=== PATIENT | female | born 1990 | race Caucasian/White ===

== ENCOUNTER 2018-12-02 17:22 | Emergency (ER) | payer BC ==
[2018-12-02] MEDS ORDERED: Sodium Chloride 0.9% 1,000 ML IV ONE (17:38)
--- NOTE | 2018-12-02 17:38 | EDM.PDOC ---
ED HPI GENERAL MEDICAL PROBLEM - General Chief Complaint: Abdominal Pain Stated Complaint: STOMACH ULCER Time Seen by Provider: 12/02/18 17:22 Source of Information: Reports: Patient History Limitations: Reports: No Limitations - History of Present Illness INITIAL COMMENTS - FREE TEXT/NARRATIVE: HISTORY AND PHYSICAL: History of present illness: Patient is a 28-year-old female who presents to the emergency room today with complaints of passing a dark maroon stool and dizziness. She reports that earlier this afternoon she had a "bloody stool" which she reports was dark in color. She has had some intermittent dizziness and "hot flashes". She is concerned that she may have a stomach ulcer, due to some low abdominal discomfort and would like to be evaluated for this. Patient reports that she has multiple "stomach problems" and has had lab work and imaging in the past for this. Patient denies any fever, chills, headache, change in vision, syncope or near syncope. Denies any chest pain, back pain, shortness of breath or cough. Denies any nausea, vomiting, diarrhea, constipation or dysuria. Patient has been eating and drinking appropriately. Review of systems: As per history of present illness and below otherwise all systems reviewed and negative. Past medical history: As per history of present illness and as reviewed below otherwise noncontributory. Surgical history: As per history of present illness and as reviewed below otherwise noncontributory. Social history: See social history for further information Family history: As per history of present illness and as reviewed below otherwise noncontributory. Physical exam: General: Well-developed and well-nourished 28-year-old female. Alert and oriented. Nontoxic appearing and in no acute distress. HEENT: Atraumatic, normocephalic, pupils equal and reactive bilaterally, negative for conjunctival pallor or scleral icterus, mucous membranes moist, TMs normal bilaterally, throat clear, neck supple, nontender, trachea midline. No drooling or trismus noted. No meningeal signs. No hot potato voice noted. Lungs: Clear to auscultation, breath sounds equal bilaterally, chest nontender. Heart: S1S2, regular rate and rhythm without overt murmur Abdomen: Soft, nondistended, obese, nontender. Negative for masses or hepatosplenomegaly. Negative for costovertebral tenderness. Pelvis: Stable nontender. Genitourinary: Deferred. Rectal: This was done with consent and a certified pathology assistant at the bedside. No external or internal hemorrhoids noted. Negative guaiac stool. Good rectal tone. Skin: Psoriasis noted around posterior scalp. Intact, warm, dry. No lesions or rashes noted. Extremities: Atraumatic, moves all extremities per self without difficulty or deficits, negative for cords or calf pain. Neurovascular unremarkable. Neuro: Awake, alert, oriented. Cranial nerves II through XII unremarkable. Cerebellum unremarkable. Motor and sensory unremarkable throughout. Exam nonfocal. Notes: Lab work and CT findings are within normal limits. We did discuss the need for follow-up with her primary care or if continues to have concern of "bloody stools" she should follow up with general surgeon or wellness specialist. Vital signs remain stable. All findings were shared with the patient. Signs and symptoms that would prompt her to return to the emergency room or reviewed and discussed. Supportive care measures were reviewed and discussed. Voices understanding and is agreeable to plan of care. Denies any further questions or concerns at this time. Diagnostics: CBC, CMP, CT abd/pelv Therapeutics: IV fluids Prescription: None Impression: Dizziness Abdominal pain Plan: 1. Please use Tylenol and/or Ibuprofen as needed for pain and fever management. 2. Get plenty of Rest. Encourage fluids to prevent dehydration. 3. Please follow up with your primary care provider and/or the general surgeon as we discussed. Return to the ED as needed as discussed. Definitive disposition and diagnosis as appropriate pending reevaluation and review of above. Abdominal Pain Score (Numeric/FACES): 3 - Related Data Allergies Allergy/AdvReac Type Severity Reaction Status Date / Time ibuprofen Allergy Hives Verified 12/02/18 17:37 Home Meds: Home Meds . [No Known Home Meds] 12/02/18 [History] ED ROS GENERAL - Review of Systems Review Of Systems: ROS reveals no pertinent complaints other than HPI. ED EXAM, GI/ABD - Physical Exam Exam: See Below (See dictation) Course - Vital Signs Last Recorded V/S: Last Vital Signs Temp 97.1 F 12/02/18 17:32 Pulse 85 12/02/18 17:32 Resp 20 12/02/18 17:32 BP 131/89 12/02/18 17:32 Pulse Ox 99 12/02/18 17:32 - Orders/Labs/Meds Orders: Active Orders 24 hr Category Date Time Status Fecal Occult Blood Collection [RC] ASDIRECTED Care 12/02/18 17:38 Active Labs: Laboratory Tests 12/02/18 12/02/18 Range/Units 18:00 18:00 WBC 11.97 H (4.0-11.0) K/uL RBC 4.29 L (4.30-5.90) M/uL Hgb 13.0 (12.0-16.0) g/dL Hct 39.1 (36.0-46.0) % MCV 91.1 (80.0-98.0) fL MCH 30.3 (27.0-32.0) pg MCHC 33.2 (31.0-37.0) g/dL RDW Std Deviation 44.2 (28.0-62.0) fl RDW Coeff of Sheryl 13 (11.0-15.0) % Plt Count 395 (150-400) K/uL MPV 9.40 (7.40-12.00) fL Neut % (Auto) 74.4 (48.0-80.0) % Lymph % (Auto) 18.1 (16.0-40.0) % [place] % (Auto) 5.7 (0.0-15.0) % Eos % (Auto) 1.6 (0.0-7.0) % Baso % (Auto) 0.2 (0.0-1.5) % Neut # (Auto) 8.9 H (1.4-5.7) K/uL Lymph # (Auto) 2.2 (0.6-2.4) K/uL [place] # (Auto) 0.7 (0.0-0.8) K/uL Eos # (Auto) 0.2 (0.0-0.7) K/uL Baso # (Auto) 0.0 (0.0-0.1) K/uL Nucleated RBC % 0.0 /100WBC Nucleated RBCs # 0 K/uL Sodium 141 (136-145) mmol/L Potassium 3.7 (3.5-5.1) mmol/L Chloride 108 H (98-107) mmol/L Carbon Dioxide 24.2 (21.0-32.0) mmol/L BUN 19 H (7.0-18.0) mg/dL Creatinine 0.7 (0.6-1.0) mg/dL Est Cr Clr Drug Dosing TNP Estimated GFR (MDRD) > 60.0 ml/min Glucose 103 (74-106) mg/dL Calcium 8.4 L (8.5-10.1) mg/dL Total Bilirubin 0.1 L (0.2-1.0) mg/dL AST 20 (15-37) IU/L ALT 34 (14-63) IU/L Alkaline Phosphatase 48 (46-116) U/L Total Protein 7.1 (6.4-8.2) g/dL Albumin 3.6 (3.4-5.0) g/dL Globulin 3.5 (2.6-4.0) g/dL Albumin/Globulin Ratio 1.0 (0.9-1.6) Meds: Medications Discontinued Medications Generic Name Dose Route Start Last Admin Trade Name Freq PRN Reason Stop Dose Admin Sodium Chloride 1,000 mls @ 999 mls/hr 12/02/18 17:38 12/02/18 18:00 Normal Saline IV 12/02/18 18:38 999 mls/hr STAT ONE Administration Iopamidol 100 ml 12/02/18 19:09 12/02/18 19:13 [id number] (76%) IVPUSH 12/02/18 19:10 100 ml ONETIME ONE Administration Departure - Departure Time of Disposition: 19:54 Disposition: Home, Self-Care 01 Clinical Impression: Dizziness Abdominal pain Qualifiers: Abdominal location: lower abdomen, unspecified Qualified Code(s): R10.30 - Lower abdominal pain, unspecified - Discharge Information Instructions: Abdominal Pain, Adult, [id number] Referrals: Kareem Ahn MD [Primary Care Provider] - Forms: ED Department Discharge Additional Instructions: The following information is given to patients seen in the emergency department who are being discharged to home. This information is to outline your options for follow-up care. We provide all patients seen in our emergency department with a follow-up referral. The need for follow-up, as well as the timing and circumstances, are variable depending upon the specifics of your emergency department visit. If you don't have a primary care physician on staff, we will provide you with a referral. We always advise you to contact your personal physician following an emergency department visit to inform them of the circumstance of the visit and for follow-up with them and/or the need for any referrals to a consulting specialist. The emergency department will also refer you to a specialist when appropriate. This referral assures that you have the opportunity for follow-up care with a specialist. All of these measure are taken in an effort to provide you with optimal care, which includes your follow-up. Under all circumstances we always encourage you to contact your private physician who remains a resource for coordinating your care. When calling for follow-up care, please make the office aware that this follow-up is from your recent emergency room visit. If for any reason you are refused follow-up, please contact the [facility] Emergency Department at and asked to speak to the emergency department charge nurse. [facility] [address] [place] [address] [place] [address] 1. Please use Tylenol and/or Ibuprofen as needed for pain and fever management. 2. Get plenty of Rest. Encourage fluids to prevent dehydration. 3. Please follow up with your primary care provider and/or the general surgeon as we discussed. Return to the ED as needed as discussed. - My Orders Last 24 Hours: My Active Orders 12/02/18 17:38 Fecal Occult Blood Collection [RC] ASDIRECTED - Assessment/Plan Last 24 Hours: My Active Orders 12/02/18 17:38 Fecal Occult Blood Collection [RC] ASDIRECTED
[2018-12-02 18:34] LABS: CHLORIDE,CL 108 mmol/L (98-107); SODIUM,NA 141 mmol/L (136-145)
[2018-12-02] MEDS ORDERED: Iopamidol 755 Mg/ML 100 ML Bottle IVPUSH ONE (19:09)
--- NOTE | 2018-12-02 19:49 | CT ---
INDICATION: ABDOMINAL PAIN WITH BLACK TARRY STOOL. TECHNIQUE: A CT volumetric acquisition was performed of the abdomen and pelvis during intravenous infusion of 100ML [id number] nonionic intravenous contrast. Please note that all CT scans at this facility use dose modulation, iterative reconstruction, and/or weight-based dosing when appropriate to reduce radiation dose to as low as reasonably achievable. COMPARISON: none FINDINGS: The CT images demonstrate mild parenchymal densities within both lung bases, left greater than right. There is no evidence of pleural or pericardial fluid. Within the abdomen the liver and spleen are of normal size and have uniform enhancement. There is no evidence of mass or inflammation within the pancreas. The gallbladder and bile ducts appear normal. The adrenal glands have normal morphology. The kidneys appear normal. The small and large bowel loops appear normal and there are no abnormalities noted within the small bowel mesentery or greater omentum. The aorta and IVC appear normal. There is no evidence of retroperitoneal lymphadenopathy. The uterus and ovaries appear normal. There is no evidence of a ventral abdominal wall hernia. IMPRESSION: No acute intra-abdominal or intrapelvic pathology. Mild bibasilar atelectasis or infiltrates, left greater than right. Please note that all CT scans at this facility use dose modulation, iterative reconstruction, and/or weight-based dosing when appropriate to reduce radiation dose to as low as reasonably achievable. Dictated by Tj Pinto MD @ Dec 02 2018 7:40PM Signed by Dr. Tj Pinto @ Dec 02 2018 7:48PM
== END 2018-12-02 20:06 | disposition home or self-care (01) ==
LOC: MW.ED 17:22
DX: R10.30 Lower abdominal pain, unspecified (principal); R42 Dizziness and giddiness; L40.9 Psoriasis, unspecified
CPT/HCPCS: 74177; 80053; 85025; 96360; 99284; J7040; Q9967

== ENCOUNTER 2019-11-22 16:46 | Emergency (ER) | payer BC ==
[2019-11-22] MEDS ORDERED: Sodium Chloride 0.9% 10 ML Syringe FLUSH PRN (16:53)
[2019-11-22] MEDS ORDERED: Sodium Chloride 0.9% 2.5 ML Syringe FLUSH PRN (16:53)
--- NOTE | 2019-11-22 17:00 | EDM.PDOC ---
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 She has been bleeding for 3 days. It is less than that period. She is not having any orthostatic symptoms or diaphoresis or lightheadedness. She does not know her blood type. She has pain in the low suprapubic area mostly deep lower right and deep lower left quadrants. She has central lower suprapubic cramps that are almost constant moderately severe. The sharp pains are intermittent in the sides. She does not have a fever but she does feel cold. She enjoys good health. [] Review of systems: As per history of present illness and below otherwise all systems reviewed and negative. Past medical history: As per history of present illness and as reviewed below otherwise noncontributory. Surgical history: As per history of present illness and as reviewed below otherwise noncontributory. Social history: No reported history of drug or alcohol abuse. Family history: As per history of present illness and as reviewed below otherwise noncontributory. Physical exam: HEENT: Atraumatic, normocephalic, pupils reactive, negative for conjunctival pallor or scleral icterus, mucous membranes moist, throat clear, neck supple, nontender, trachea midline. Lungs: Clear to auscultation, breath sounds equal bilaterally, chest nontender. Heart: S1S2, regular, negative for clicks, rubs, or JVD. Abdomen: Soft, nondistended, slightly tender in the suprapubic area. Negative for masses or hepatosplenomegaly. Negative for costovertebral tenderness. Pelvis: Stable nontender. Genitourinary: Deferred. Rectal: Deferred. Extremities: Atraumatic, negative for cords or calf pain. Neurovascular unremarkable. Neuro: Awake, alert, oriented. Cranial nerves II through XII unremarkable. Cerebellum unremarkable. Motor and sensory unremarkable throughout. Exam nonfocal. Diagnostics: [] Therapeutics: [] Impression: [] Plan: [] Definitive disposition and diagnosis as appropriate pending reevaluation and review of above. Patient's hCG was low enough that I do not know whether she is too early to see on the ultrasound or if she has had a miscarriage. Plan to do the hCG in 2 or more days and follow-up with her family doctor at [facility]. Stephanie patient refused to wait for her blood type and to get her RhoGam. She insists that she will never change her mind and does not want to have any future babies. Onset: Today cramping Pain Score (Numeric/FACES): 5 - Related Data Allergies Allergy/AdvReac Type Severity Reaction Status Date / Time ibuprofen Allergy Hives Verified 12/02/18 17:37 Home Meds: Home Meds . [No Known Home Meds] 12/02/18 [History] Past Medical History Musculoskeletal History: Reports: Arthritis Dermatologic History: Reports: Psoriasis - Infectious Disease History Infectious Disease History: Reports: Chicken Pox Social & Family History - Caffeine Use Caffeine Use: Reports: Coffee ED ROS GENERAL - Review of Systems Review Of Systems: Comprehensive ROS is negative, except as noted in HPI. ED EXAM, GENERAL - Physical Exam Exam: See Below Free Text/Narrative:: Physical exam as in the HPI section Course - Vital Signs Last Recorded V/S: Last Vital Signs Temp 98.5 F 11/22/19 17:00 Pulse 91 11/22/19 17:00 Resp 18 11/22/19 17:00 BP 145/80 H 11/22/19 17:00 Pulse Ox 98 11/22/19 17:00 - Orders/Labs/Meds Orders: Active Orders 24 hr Category Date Time Status ABO/RH TYPE [BBK] Stat Lab 11/22/19 17:23 Received UA W/MICROSCOPIC [URIN] Stat Lab 11/22/19 18:03 Results Labs: Laboratory Tests 11/22/19 11/22/19 11/22/19 Range/Units 17:23 17:23 18:03 WBC 13.00 H (4.0-11.0) K/uL RBC 4.16 L (4.30-5.90) M/uL Hgb 12.6 (12.0-16.0) g/dL Hct 38.1 (36.0-46.0) % MCV 91.6 (80.0-98.0) fL MCH 30.3 (27.0-32.0) pg MCHC 33.1 (31.0-37.0) g/dL RDW Std Deviation 45.1 (28.0-62.0) fl RDW Coeff of Sheryl 14 (11.0-15.0) % Plt Count 401 H (150-400) K/uL MPV 9.20 (7.40-12.00) fL Neut % (Auto) 75.0 (48.0-80.0) % Lymph % (Auto) 16.5 (16.0-40.0) % [place] % (Auto) 6.8 (0.0-15.0) % Eos % (Auto) 1.5 (0.0-7.0) % Baso % (Auto) 0.2 (0.0-1.5) % Neut # (Auto) 9.8 H (1.4-5.7) K/uL Lymph # (Auto) 2.2 (0.6-2.4) K/uL [place] # (Auto) 0.9 H (0.0-0.8) K/uL Eos # (Auto) 0.2 (0.0-0.7) K/uL Baso # (Auto) 0.0 (0.0-0.1) K/uL Nucleated RBC % 0.0 /100WBC Nucleated RBCs # 0 K/uL Sodium 135 L (136-145) mmol/L Potassium 4.7 (3.5-5.1) mmol/L Chloride 104 (98-107) mmol/L Carbon Dioxide 24.7 (21.0-32.0) mmol/L BUN 10 (7.0-18.0) mg/dL Creatinine 0.7 (0.6-1.0) mg/dL Est Cr Clr Drug Dosing 94.63 mL/min Estimated GFR (MDRD) > 60.0 ml/min Glucose 87 (74-106) mg/dL Calcium 8.8 (8.5-10.1) mg/dL HCG, Quant 52.0 mIU/mL Urine Color YELLOW Urine Appearance SLT CLOUDY Urine pH 8.0 (5.0-8.0) Ur Specific [place] 1.015 (1.001-1.035) Urine Protein NEGATIVE (NEGATIVE) mg/dL Urine Glucose (UA) NEGATIVE (NEGATIVE) mg/dL Urine Ketones NEGATIVE (NEGATIVE) mg/dL Urine Occult Blood LARGE H (NEGATIVE) Urine Nitrite NEGATIVE (NEGATIVE) Urine Bilirubin NEGATIVE (NEGATIVE) Urine Urobilinogen 0.2 (<2.0) EU/dL Ur Leukocyte Esterase NEGATIVE (NEGATIVE) Meds: Medications Discontinued Medications Generic Name Dose Route Start Last Admin Trade Name Cassie PRN Reason Stop Dose Admin Sodium Chloride 10 ml 11/22/19 16:53 Saline Flush FLUSH ASDIRECTED PRN Keep Vein Open Sodium Chloride 2.5 ml 11/22/19 16:53 Saline Flush FLUSH ASDIRECTED PRN Keep Vein Open Departure - Departure Time of Disposition: 18:25 Disposition: Home, Self-Care 01 Condition: Good Clinical Impression: Threatened - Discharge Information Instructions: Vaginal Bleeding During , First Trimester Forms: ED Department Discharge Additional Instructions: The following information is given to patients seen in the emergency department who are being discharged to home. This information is to outline your options for follow-up care. We provide all patients seen in our emergency department with a follow-up referral. The need for follow-up, as well as the timing and circumstances, are variable depending upon the specifics of your emergency department visit. If you don't have a primary care physician on staff, we will provide you with a referral. We always advise you to contact your personal physician following an emergency department visit to inform them of the circumstance of the visit and for follow-up with them and/or the need for any referrals to a consulting specialist. The emergency department will also refer you to a specialist when appropriate. This referral assures that you have the opportunity for follow-up care with a specialist. All of these measure are taken in an effort to provide you with optimal care, which includes your follow-up. Under all circumstances we always encourage you to contact your private physician who remains a resource for coordinating your care. When calling for follow-up care, please make the office aware that this follow-up is from your recent emergency room visit. If for any reason you are refused follow-up, please contact the [facility] Emergency Department at and asked to speak to the emergency department charge nurse. [facility] follow-up. Have your hCG drawn in 2 or more days and follow-up with your primary doctor [facility] [address] [place] [address] [facility] [address] [place] [address] Sepsis Event Note (ED) - Focused Exam Vital Signs: Vital Signs Temp Pulse Resp BP Pulse Ox 11/22/19 17:00 98.5 F 91 18 145/80 H 98 - My Orders Last 24 Hours: My Active Orders 11/22/19 17:23 ABO/RH TYPE [BBK] Stat 11/22/19 18:03 UA W/MICROSCOPIC [URIN] Stat - Assessment/Plan Last 24 Hours: My Active Orders 11/22/19 17:23 ABO/RH TYPE [BBK] Stat 11/22/19 18:03 UA W/MICROSCOPIC [URIN] Stat
[2019-11-22 18:00] LABS: BLOOD UREA NITROGEN,BUN 10 mg/dL (7.0-18.0); CARBON DIOXIDE,CO2 24.7 mmol/L (21.0-32.0); CHLORIDE,CL 104 mmol/L (98-107); GLUCOSE RANDOM 87 mg/dL (74-106); POTASSIUM,K 4.7 mmol/L (3.5-5.1); SODIUM,NA 135 mmol/L (136-145)
--- NOTE | 2019-11-22 18:11 | US ---
First trimester obstetrical ultrasound: Multiple real-time images were obtained transvaginally. Uterus is anteverted. No intrauterine gestational sac is seen. Right and left ovaries show follicles without larger cyst or solid abnormality. No free fluid is seen. Impression: 1. No intrauterine gestational sac is seen. 2. If patient has positive test, differential includes miscarriage, too early to visualize as well as nonvisualized ectopic . Diagnostic code #3 Study was dictated in MDT
== END 2019-11-22 18:58 | disposition home or self-care (01) ==
LOC: MW.ED 16:46
DX: O20.0 Threatened abortion (principal); Z88.6 Allergy status to analgesic agent
CPT/HCPCS: 36415; 76801; 76801-26; 80048; 81001; 84702; 85025; 86900; 86901; 99282; 99284-25

== ENCOUNTER 2020-01-18 13:27 | Emergency (ER) | payer BC ==
[2020-01-18] MEDS ORDERED: Lidocaine 1% with EPINEPHrine 1:100,000 10 ML MDV INJECT ONE (13:43)
[2020-01-18] MEDS ORDERED: Diphtheria,Pertussis(Acell),Tetanus Vaccine 0.5 ML Syringe IM ONE (13:43)
--- NOTE | 2020-01-18 13:45 | EDM.PDOC ---
ED HPI GENERAL MEDICAL PROBLEM - General Chief Complaint: Laceration Stated Complaint: LACERATION LT FOOT Time Seen by Provider: 01/18/20 13:43 Source of Information: Reports: Patient History Limitations: Reports: No Limitations - History of Present Illness INITIAL COMMENTS - FREE TEXT/NARRATIVE: 29F presents for laceration to L posterior heel. Patient was kicked and a toenail dug into her heel. Needs Tdap. No h/o DM2. Left foot Pain Score (Numeric/FACES): 4 - Related Data Allergies Allergy/AdvReac Type Severity Reaction Status Date / Time ibuprofen Allergy Hives Verified 01/18/20 13:45 Home Meds: Home Meds buPROPion HCL [Wellbutrin Xl] 300 mg PO DAILY 01/18/20 [History] Past Medical History Musculoskeletal History: Reports: Arthritis Dermatologic History: Reports: Psoriasis - Infectious Disease History Infectious Disease History: Reports: Chicken Pox Social & Family History - Family History Family Medical History: Noncontributory - Caffeine Use Caffeine Use: Reports: Coffee ED ROS GENERAL - Review of Systems Review Of Systems: Comprehensive ROS is negative, except as noted in HPI. ED EXAM, SKIN/RASH Exam: See Below Exam Limited By: No Limitations General Appearance: Alert, WD/WN, No Apparent Distress Head: Atraumatic, Normocephalic Respiratory/Chest: No Respiratory Distress Cardiovascular: Normal Peripheral Pulses Extremities: Other (2-cm laceration superficial to L posterior heel) Neurological: Alert Psychiatric: Normal Affect, Normal Mood Skin: Warm, Dry ED SKIN PROCEDURES - Laceration/Wound Repair Left Posterior Foot Appearance: Superficial Distal NVT: Neuro & Vascular Intact Anesthetic Type: Local Local Anesthesia - Lidocaine (Xylocaine): 1% with EPI Local Anesthetic Volume: 5cc Skin Prep: Chlorhexidine (Hibiciens) Saline Irrigation (cc's): 100 Closed with: Sutures Lac/Wound length In cm: 2 Suture Size: 4-0 # of Sutures: 4 Suture Type: Silk Tetanus Status Addressed: Yes Complications: No Course - Vital Signs Last Recorded V/S: Last Vital Signs Temp 96.3 F L 01/18/20 13:45 Pulse 78 01/18/20 13:45 Resp 18 01/18/20 13:45 BP 121/75 01/18/20 13:45 Pulse Ox 97 01/18/20 13:45 - Orders/Labs/Meds Orders: Active Orders 24 hr Category Date Time Status Vaccines to be Administered [RC] PER UNIT ROUTINE Care 01/18/20 13:43 Active Meds: Medications Discontinued Medications Generic Name Dose Route Start Last Admin Trade Name Cassie PRN Reason Stop Dose Admin Diphtheria/Tetanus/Acell Pertussis 0.5 ml 01/18/20 13:43 01/18/20 14:07 Adacel IM 01/18/20 13:44 0.5 ml .ONCE ONE Administration Lidocaine/Epinephrine 10 ml 01/18/20 13:43 01/18/20 14:08 Xylocaine 1% With Epinephrine 1:100,000 INJECT 01/18/20 13:44 10 ml ONETIME ONE Administration Lidocaine/Epinephrine Confirm 01/18/20 13:58 01/18/20 14:04 Xylocaine 1% With Epinephrine 1:100,000 Administered 01/18/20 13:59 Not Given Dose 20 ml .ROUTE .STK-MED ONE - Re-Assessments/Exams Free Text/Narrative Re-Assessment/Exam: 01/18/20 13:45 Patient presents with 2-cm lac to L posterior heel; will give Adacel and suture lac, d/c with f/u and return precautions Departure - Departure Time of Disposition: 13:46 Disposition: Home, Self-Care 01 Condition: Good Clinical Impression: Laceration - Discharge Information Referrals: Karina Davis NP [Primary Care Provider] - (Need to have sutures moved in 7- 10 days) Forms: ED Department Discharge Additional Instructions: The following information is given to patients seen in the emergency department who are being discharged to home. This information is to outline your options for follow-up care. We provide all patients seen in our emergency department with a follow-up referral. The need for follow-up, as well as the timing and circumstances, are variable depending upon the specifics of your emergency department visit. If you don't have a primary care physician on staff, we will provide you with a referral. We always advise you to contact your personal physician following an emergency department visit to inform them of the circumstance of the visit and for follow-up with them and/or the need for any referrals to a consulting specialist. The emergency department will also refer you to a specialist when appropriate. This referral assures that you have the opportunity for follow-up care with a specialist. All of these measure are taken in an effort to provide you with optimal care, which includes your follow-up. Under all circumstances we always encourage you to contact your private physician who remains a resource for coordinating your care. When calling for follow-up care, please make the office aware that this follow-up is from your r ecent emergency room visit. If for any reason you are refused follow-up, please contact the [facility] Emergency Department at and asked to speak to the emergency department charge nurse. Sepsis Event Note (ED) - Focused Exam Vital Signs: Vital Signs Temp Pulse Resp BP Pulse Ox 01/18/20 13:45 96.3 F L 78 18 121/75 97 - My Orders Last 24 Hours: My Active Orders 01/18/20 13:43 Vaccines to be Administered [RC] PER UNIT ROUTINE - Assessment/Plan Last 24 Hours: My Active Orders 01/18/20 13:43 Vaccines to be Administered [RC] PER UNIT ROUTINE
[2020-01-18] MEDS ORDERED: Lidocaine 1% with EPINEPHrine 1:100,000 20 ML MDV ONE (13:58)
== END 2020-01-18 14:35 | disposition home or self-care (01) ==
LOC: MW.ED 13:27
DX: S91.312A Laceration without foreign body, left foot, initial encounter (principal); Z88.6 Allergy status to analgesic agent; Z79.899 Other long term (current) drug therapy; Z23 Encounter for immunization; W45.0XXA Nail entering through skin, initial encounter
CPT/HCPCS: 12001; 90471; 90715; 99282

== ENCOUNTER 2020-01-27 16:12 | Emergency (ER) | payer BC | END 2020-01-27 16:46 | disposition home or self-care (01) | LOC: MW.ED 16:12 | DX: S91.312D Laceration without foreign body, left foot, subsequent encounter (principal) | CPT/HCPCS: 99281 ==

== ENCOUNTER 2021-02-22 18:11 | Emergency (ER) | payer BC ==
[2021-02-22] MEDS ORDERED: Octyl 2-Cyanoacrylate 1 APPLIC TUBE TOP ONE (18:29)
--- NOTE | 2021-02-22 18:34 | EDM.PDOC ---
ED HPI GENERAL MEDICAL PROBLEM - General Chief Complaint: Laceration Stated Complaint: RT HAND FINGER LACERATION Time Seen by Provider: 02/22/21 18:24 Source of Information: Reports: Patient History Limitations: Reports: No Limitations - History of Present Illness INITIAL COMMENTS - FREE TEXT/NARRATIVE: Patient is a 30-year-old female presents today for a cut to her right index finger. Patient was using a knife when it slipped and cut the dorsal side of her finger. There was a good amount of bleeding she is able control pressure. On exam patient has a 2 mm laceration that is nonbleeding and looks to be closely approximated. Patient denies any other injuries. Patient up-to-date on tetanus. Right Finger-Index Pain Score (Numeric/FACES): 3 - Related Data Allergies Allergy/AdvReac Type Severity Reaction Status Date / Time ibuprofen Allergy Hives Verified 02/22/21 18:21 Home Meds: Home Meds buPROPion HCL [Wellbutrin Xl] 300 mg PO DAILY 01/18/20 [History] Past Medical History - Past Health History Medical/Surgical History: Denies Medical/Surgical History Musculoskeletal History: Reports: Arthritis Psychiatric History: Reports: Depression Dermatologic History: Reports: Psoriasis - Infectious Disease History Infectious Disease History: Reports: Chicken Pox Social & Family History - Family History Family Medical History: No Pertinent Family History - Caffeine Use Caffeine Use: Reports: None - Recreational Drug Use Recreational Drug Use: No ED ROS GENERAL - Review of Systems Review Of Systems: See Below Constitutional: Reports: No Symptoms HEENT: Reports: No Symptoms Respiratory: Reports: No Symptoms Cardiovascular: Reports: No Symptoms Endocrine: Reports: No Symptoms GI/Abdominal: Reports: No Symptoms : Reports: No Symptoms Musculoskeletal: Reports: No Symptoms Skin: Reports: Other (Laceration finger) Neurological: Reports: No Symptoms Psychiatric: Reports: No Symptoms Hematologic/Lymphatic: Reports: No Symptoms Immunologic: Reports: No Symptoms ED EXAM, SKIN/RASH Exam: See Below Exam Limited By: No Limitations General Appearance: Alert, WD/WN, No Apparent Distress Head: Atraumatic, Normocephalic Respiratory/Chest: No Respiratory Distress, Lungs Clear, Normal Breath Sounds Cardiovascular: Normal Peripheral Pulses, Regular Rate, Rhythm Extremities: Normal Inspection, Normal Range of Motion, Other (Superficial laceration on the right index finger dorsal side well approximated) Neurological: Alert, Oriented, Normal Cognition, Normal Gait ED SKIN PROCEDURES - Laceration/Wound Repair Digit - 2nd (Index) Appearance: Superficial Closed with: Dermabond Lac/Wound length In cm: 2 Course - Vital Signs Last Recorded V/S: Last Vital Signs Temp 97 F 02/22/21 18:21 Pulse 84 02/22/21 18:21 Resp 16 02/22/21 18:21 BP 135/72 02/22/21 18:21 Pulse Ox 98 02/22/21 18:21 - Orders/Labs/Meds Meds: Medications Discontinued Medications Generic Name Dose Route Start Last Admin Trade Name Cassie PRN Reason Stop Dose Admin Octyl Cyanoacrylate 1 applic 02/22/21 18:29 Octyl 2-Cyanoacrylate 1 Applic Tube TOP 02/22/21 18:30 ONETIME ONE Departure - Departure Time of Disposition: 18:31 Disposition: Home, Self-Care 01 Condition: Good Clinical Impression: Laceration of superficial palmar arch of right hand - Discharge Information *PRESCRIPTION DRUG MONITORING PROGRAM REVIEWED*: Not Applicable *COPY OF PRESCRIPTION DRUG MONITORING REPORT IN PATIENT RHEA: Not Applicable Instructions: Nonsutured Laceration Care Referrals: Karina Davis NP [Primary Care Provider] - Forms: ED Department Discharge Additional Instructions: The following information is given to patients seen in the emergency department who are being discharged to home. This information is to outline your options for follow-up care. We provide all patients seen in our emergency department with a follow-up referral. The need for follow-up, as well as the timing and circumstances, are variable depending upon the specifics of your emergency department visit. If you don't have a primary care physician on staff, we will provide you with a referral. We always advise you to contact your personal physician following an emergency department visit to inform them of the circumstance of the visit and for follow-up with them and/or the need for any referrals to a consulting specialist. The emergency department will also refer you to a specialist when appropriate. This referral assures that you have the opportunity for follow-up care with a specialist. All of these measure are taken in an effort to provide you with optimal care, which includes your follow-up. Under all circumstances we always encourage you to contact your private physician who remains a resource for coordinating your care. When calling for follow-up care, please make the office aware that this follow-up is from your recent emergency room visit. If for any reason you are refused follow-up, please contact the [facility] Emergency Department at and asked to speak to the emergency department charge nurse. Please follow up with your primary care physician. If you do not have a primary care physician, see below: [facility] [address] [place] [id number] [facility] [address] [place] [address] You are seen today for a cut to your index finger. Physical exam the wound is well approximated does not require any sutures this time. You also update your tetanus. Please keep the hand clean as best as possible. If you have any redness or drainage please return to ED otherwise follow the primary care physician. Sepsis Event Note (ED) - Evaluation Sepsis Screening Result: No Definite Risk - Focused Exam Vital Signs: Vital Signs Temp Pulse Resp BP Pulse Ox 02/22/21 18:21 97 F 84 16 135/72 98
== END 2021-02-22 18:52 | disposition home or self-care (01) ==
LOC: MW.ED 18:11
DX: S61.210A Laceration without foreign body of right index finger without damage to nail, initial encounter (principal); Z88.6 Allergy status to analgesic agent; W26.0XXA Contact with knife, initial encounter
CPT/HCPCS: 12001; 99282; A9270

== ENCOUNTER 2024-08-26 18:58 | Emergency (ER) | payer BC ==
[2024-08-26] MEDS: Amoxicillin/Clavulanate K 875-125 MG Tab PO ONE (21:29)
[2024-08-26] MEDS: Acetaminophen/HYDROcodone 325-5 MG Tab PO ONE (21:29)
== END 2024-08-26 22:26 | disposition home or self-care (01) ==
LOC: MW.ED 18:58
DX: S51.851A Open bite of right forearm, initial encounter (principal); Z88.6 Allergy status to analgesic agent; W54.0XXA Bitten by dog, initial encounter
CPT/HCPCS: 99283; A9270; 99282